=== PATIENT | female | born 1960 | race Caucasian/White ===

== ENCOUNTER 2024-01-15 11:22 | Day surgery (SDC) | payer BC ==
[~2024-01-15] VITALS: Ht 170.2 cm; Wt 93.9 kg
[~2024-01-15 11:22] MED LIST: ATIV2TAB PO; ATOR40TA75 PO; CETI-25 PO; CYAN500T14 PO; EQL50TAB2 PO; ERGO500029 PO; FAMO40TA3 PO; TREL1AER INH; XARE10TA PO
[2024-01-15] MEDS: NS 1,000 ML IV ONE (11:53)
[2024-01-15] MEDS ORDERED: ACET650T61 PO (11:55)
[2024-01-15] MEDS ORDERED: propofoL 200 MG/20 ML VIAL As Ordered ONE (12:49)
[2024-01-15] MEDS ORDERED: LIDOCAINE 2% 100MG/5ML SDV (FOR ANES.) As Ordered ONE (12:49)
[2024-01-15 13:07] VITALS: TEMP 96.7
[2024-01-15 13:28] VITALS: BP 136/65; O2SAT 94
== END 2024-01-15 13:33 | disposition home or self-care (01) ==
LOC: M OPP 11:22
PROVIDERS: ATTEND Surgery
DX: Z12.11 Encounter for screening for malignant neoplasm of colon (principal); Z80.0 Family history of malignant neoplasm of digestive organs; K64.1 Second degree hemorrhoids; Z79.01 Long term (current) use of anticoagulants; Z79.02 Long term (current) use of antithrombotics/antiplatelets; Z79.51 Long term (current) use of inhaled steroids; Z79.899 Other long term (current) drug therapy; Z88.0 Allergy status to penicillin; Z86.711 Personal history of pulmonary embolism; Z87.891 Personal history of nicotine dependence

== ENCOUNTER 2024-02-14 18:57 | Inpatient (IN) | payer MEDICARE, BC ==
[~2024-02-14] VITALS: Ht 170.2 cm; Wt 98.0 kg
[2024-02-14] MEDS: ADVAIR HFA 115/21MCG INHALER INH SCH (00:31)
[~2024-02-14 18:57] MED LIST changes: +ACET650T61 PO
[2024-02-14 19:49] LABS: VENOUS BASE EXCESS -8.8 (-2.0-2.0); VENOUS HCO3 18.6 MMOL/L (23.0-27.0); VENOUS PARTIAL PRESSURE CO2 45.1 mmHg (38.0-50.0); VENOUS PARTIAL PRESSURE O2 33.6 mmHg (30.0-50.0); VENOUS PH 7.233 UNITS (7.330-7.430); VENOUS STANDARD HCO3 16.6 MMOL/L
[2024-02-14 19:50] LABS: HEMOGLOBIN 14.7 g/dl (12.0-15.5); MEAN CORPUSCULAR HEMOGLOBIN 32.7 pg (27.0-33.0); MEAN CORPUSCULAR HGB CONC 33.4 g/dl (32.0-36.5); MEAN CORPUSCULAR VOLUME 97.8 fl (80.0-96.0); PLATELET COUNT, AUTOMATED 226 10^3/uL (150-450); WHITE BLOOD COUNT 8.4 10^3/uL (4.0-10.0)
[2024-02-14 20:11] LABS: ATYPICAL LYMPH 2 % (0-5); LYMPHOCYTES 19 % (16-44); METAMYELOCYTES 5 % (0-0); MONOCYTES 3 % (0-5); MYELOCYTES 1 % (0-0); NEUTROPHILS 51 % (28-66)
[2024-02-14 20:12] LABS: PLATELET CLUMPS SMALL AMT; PLATELET ESTIMATE NORMAL (NORMAL)
[2024-02-14 20:15] LABS: CK-MB VALUE MASS 1.1 NG/ML (<3.6); LIPASE 18 U/L (12-53)
[2024-02-14 20:17] LABS: ALBUMIN 2.9 G/DL (3.2-5.2); ALKALINE PHOSPHATASE 73 U/L (46-116); ALT/SGPT 106 U/L (7.0-40); AST/SGOT 71 U/L (<34); BILIRUBIN,DIRECT 0.8 MG/DL (<0.4); BLOOD UREA NITROGEN 42 MG/DL (9-23); CALCIUM LEVEL 8.5 MG/DL (8.3-10.6); CARBON DIOXIDE LEVEL 20 MMOL/L (20-31); CHLORIDE LEVEL 104 MMOL/L (98-107); CPK CREATINE PHOSPHOKINASE 126 U/L (34-145); CREATININE FOR GFR 3.46 MG/DL (0.55-1.30); GLOMERULAR FILTRATION RATE 14.2 (>45); GLUCOSE, FASTING 91 MG/DL (74-106); MB/CK RELATIVE INDEX 0.87 (< OR =4); POTASSIUM SERUM 3.9 MMOL/L (3.5-5.1); SODIUM LEVEL 140 MMOL/L (136-145)
[2024-02-14 20:19] LABS: ACETONE/KETONE 0.08 MMOL/L (0.02-0.27)
[2024-02-14 20:26] LABS: PROCALCITONIN >50.00 ng/ml
[2024-02-14 20:34] LABS: OSMOLALITY SERUM 303 MOSM/KG (280-301)
[2024-02-14] MEDS: methylPREDNISolone 125MG 2ML VIAL IV ONE (20:34)
[2024-02-14] MEDS: IPRATROPIUM 0.5MG/ALBUTEROL 2.5MG INH SOL UD 3ML (DUONEB) NEB SCH (20:35)
[2024-02-14] MEDS: NS 1,000 ML IV ONE (20:36)
[2024-02-14] MEDS: NS 1,820 ML in IV 1 EA IV ONE (20:36)
[2024-02-14] MEDS: cefTRIAXone SOD 2 GM in DEXTROSE 5% (D5W) ADV/MINI-BAG 50 ML IV ONE (20:36)
[2024-02-14 20:45] LABS: INR 1.59; PARTIAL THROMBOPLASTIN TIME 30.8 SECONDS (24.8-34.2); PROTHROMBIN TIME 18.4 SECONDS (12.5-14.5)
[2024-02-14 20:50] LABS: ABG BASE EXCESS -7.9 (-2.0-2.0); ABG HCO3 15.6 MMOL/L (22.0-26.0); ABG O2 SATURATION 90.6 % (95.0-99.0); ABG PARTIAL PRESSURE CO2 26.8 mmHg (35.0-45.0); ABG PARTIAL PRESSURE O2 58.1 mmHg (75.0-100.0); ABG STANDARD HCO3 17.9 MMOL/L. (22.0-26.0); ABG TOTAL CO2 16.4 MMOL/L (23.0-31.0); ABG pH (ARTERIAL) 7.382 UNITS (7.350-7.450)
[2024-02-14] MEDS: NOREPINEPHRINE 4MG IN D5 250ML 4 MG in IV 1 EA IV SCH (21:33)
[2024-02-14] MEDS: NS 1,000 ML IV SCH (22:02)
[2024-02-14] MEDS ORDERED: LORA1TAB23 PO (22:17)
[2024-02-14] MEDS ORDERED: HOME MED LIST COMPLETE! XX SCH (22:20)
[2024-02-14] MEDS: ACETAMINOPHEN *IV* 1,000 MG in IV 1 EA IV ONE (23:13)
[2024-02-14] MEDS ORDERED: ALBUTEROL 90 MCG/ACT 8GM HFA INHALER INH PRN (23:35)
[2024-02-14] MEDS ORDERED: CEFEPIME HCL 2 GM in DEXTROSE 5% (D5W) ADV/MINI-BAG 50 ML IV SCH (23:35)
[2024-02-15] VITALS (104 sets, daily range): BP systolic 72–132; BP diastolic 39–72; TEMP 97.6–99.6; O2SAT 88–96
[2024-02-15] MEDS: IPRATROPIUM 0.5MG/ALBUTEROL 2.5MG INH SOL UD 3ML (DUONEB) NEB SCH (00:36)
[2024-02-15] MEDS: AZITHROMYCIN 250MG TABLET PO SCH (00:41)
[2024-02-15] MEDS: ATORVASTATIN 20 MG TAB PO SCH (00:41)
[2024-02-15] MEDS: NOREPINEPHRINE 4MG IN D5 250ML 4 MG in IV 1 EA IV SCH (00:48)
[2024-02-15] MEDS: CEFEPIME HCL 1 GM in DEXTROSE 5% (D5W) ADV/MINI-BAG 50 ML IV SCH (01:38)
[2024-02-15 05:26] LABS: HEMATOCRIT 42.1 % (36.0-47.0); HEMOGLOBIN 14.3 g/dl (12.0-15.5); MEAN CORPUSCULAR HEMOGLOBIN 32.7 pg (27.0-33.0); MEAN CORPUSCULAR VOLUME 96.3 fl (80.0-96.0); PLATELET COUNT, AUTOMATED 183 10^3/uL (150-450); RED BLOOD COUNT 4.37 10^6/uL (4.00-5.40)
[2024-02-15 05:56] LABS: CALCIUM LEVEL 7.8 MG/DL (8.3-10.6); CREATININE FOR GFR 2.21 MG/DL (0.55-1.30); GLOMERULAR FILTRATION RATE 23.8 (>45); POTASSIUM SERUM 4.1 MMOL/L (3.5-5.1)
[2024-02-15] MEDS: HEPARIN SOD (PORCINE) 5000UNITS/ML 1ML VIAL/SYRINGE SC SCH (06:00)
[2024-02-15 06:03] LABS: LYMPHOCYTES 16 % (16-44); METAMYELOCYTES 7 % (0-0); MONOCYTES 12 % (0-5); NEUTROPHILS 33 % (28-66)
[2024-02-15 06:05] LABS: PLATELET ESTIMATE NORMAL (NORMAL)
[2024-02-15 07:02] LABS: ALBUMIN 2.6 G/DL (3.2-5.2); BILIRUBIN,DIRECT 0.5 MG/DL (<0.4); BILIRUBIN,TOTAL 1.2 MG/DL (0.3-1.2); TOTAL PROTEIN 5.6 G/DL (5.7-8.2)
[2024-02-15] MEDS: HYDROCORTISONE 100MG/2ML VIAL IV SCH (08:51)
[2024-02-15] MEDS: NS 1,000 ML IV ONE ×3 (08:51→17:07)
[2024-02-15] MEDS: ACETAMINOPHEN TAB 650MG DOSE (2X325MG) PO ONE ×2 (09:21→16:26)
[2024-02-15] MEDS: NS 1,000 ML IV SCH (10:23)
[2024-02-15] MEDS: SODIUM CHLORIDE 0.9% 1000ML IV ONE (10:32)
[2024-02-15 15:55] LABS: CALCIUM LEVEL 6.9 MG/DL (8.3-10.6); CREATININE FOR GFR 1.46 MG/DL (0.55-1.30); GLOMERULAR FILTRATION RATE 38.4 (>45); POTASSIUM SERUM 3.5 MMOL/L (3.5-5.1)
[2024-02-15] MEDS: MORPHINE 2 MG/ML 1ML VIAL IV ONE (17:06)
[2024-02-15] MEDS: LR 1,000 ML IV SCH (18:38)
[2024-02-15] MEDS: FAMOTIDINE 20 MG TAB PO SCH (20:30)
[2024-02-16] VITALS (57 sets, daily range): BP systolic 86–143; BP diastolic 47–69; TEMP 97.2–98; O2SAT 88–96
[2024-02-16 05:36] LABS: MEAN CORPUSCULAR HEMOGLOBIN 32.2 pg (27.0-33.0); MEAN CORPUSCULAR HGB CONC 34.2 g/dl (32.0-36.5); MEAN CORPUSCULAR VOLUME 94.3 fl (80.0-96.0); PLATELET COUNT, AUTOMATED 118 10^3/uL (150-450); RED BLOOD COUNT 3.35 10^6/uL (4.00-5.40); WHITE BLOOD COUNT 11.7 10^3/uL (4.0-10.0)
[2024-02-16] MEDS: LIDOCAINE 5% (LIDODERM) PATCH TD ONE (05:42)
[2024-02-16] MEDS: MORPHINE 2 MG/ML 1ML VIAL IV ONE ×2 (05:43→08:49)
[2024-02-16 05:44] LABS: HEMATOCRIT 31.6 % (36.0-47.0); HEMOGLOBIN 10.8 g/dl (12.0-15.5)
[2024-02-16 06:01] LABS: BILIRUBIN,TOTAL 1.2 MG/DL (0.3-1.2); CALCIUM LEVEL 7.6 MG/DL (8.3-10.6); CREATININE FOR GFR 1.02 MG/DL (0.55-1.30); GLOMERULAR FILTRATION RATE 58.1 (>45); MAGNESIUM LEVEL 1.9 MG/DL (1.8-2.4); POTASSIUM SERUM 3.2 MMOL/L (3.5-5.1); TOTAL PROTEIN 4.8 G/DL (5.7-8.2)
[2024-02-16 06:25] LABS: LYMPHOCYTES 5 % (16-44); METAMYELOCYTES 2 % (0-0); MONOCYTES 3 % (0-5); NEUTROPHILS 67 % (28-66)
[2024-02-16 06:26] LABS: PLATELET ESTIMATE DECREASED (NORMAL)
[2024-02-16] MEDS: POTASSIUM CHLORIDE 10MEQ SR TABLET PO ONE (06:36)
[2024-02-16] MEDS: FUROSEMIDE 20MG/2ML VIAL IV ONE (08:50)
[2024-02-16] MEDS: CEFEPIME HCL 2 GM in DEXTROSE 5% (D5W) ADV/MINI-BAG 50 ML IV SCH (11:16)
[2024-02-16] MEDS: RIVAROXABAN 20MG TAB (XARELTO) PO SCH (12:19)
[2024-02-16] MEDS ORDERED: RIVAROXABAN 20MG TAB (XARELTO) PO SCH (18:00)
[2024-02-16] MEDS: CALCIUM CARBONATE 500 MG CHEW U/D PO PRN (18:11)
[2024-02-16] MEDS: FAMOTIDINE 20 MG TAB PO SCH (20:23)
[2024-02-16] MEDS: LORazepam 0.5 MG TAB PO PRN (20:24)
[2024-02-17] VITALS (16 sets, daily range): BP systolic 90–126; BP diastolic 51–71; TEMP 97.1–98.8; O2SAT 88–95
[2024-02-17] MEDS: ACETAMINOPHEN TAB 650MG DOSE (2X325MG) PO ONE (02:50)
[2024-02-17] MEDS: LIDOCAINE 5% (LIDODERM) PATCH TD ONE (02:50)
[2024-02-17 04:41] LABS: HEMATOCRIT 31.9 % (36.0-47.0); HEMOGLOBIN 10.8 g/dl (12.0-15.5); MEAN CORPUSCULAR HEMOGLOBIN 31.9 pg (27.0-33.0); MEAN CORPUSCULAR HGB CONC 33.9 g/dl (32.0-36.5); MEAN CORPUSCULAR VOLUME 94.1 fl (80.0-96.0); PLATELET COUNT, AUTOMATED 129 10^3/uL (150-450); RED BLOOD COUNT 3.39 10^6/uL (4.00-5.40); WHITE BLOOD COUNT 13.1 10^3/uL (4.0-10.0)
[2024-02-17 05:22] LABS: ATYPICAL LYMPH 1 % (0-5); CK-MB VALUE MASS < 1.0 NG/ML (<3.6); EOSINOPHILS 1 % (0-3); LYMPHOCYTES 11 % (16-44); MONOCYTES 3 % (0-5); NEUTROPHILS 79 % (28-66)
[2024-02-17 05:23] LABS: CPK CREATINE PHOSPHOKINASE 52 U/L (34-145); MB/CK RELATIVE INDEX 1.92 (< OR =4); PLATELET ESTIMATE NORMAL (NORMAL)
[2024-02-17 05:24] LABS: ALBUMIN 1.9 G/DL (3.2-5.2); ALKALINE PHOSPHATASE 82 U/L (46-116); ALT/SGPT 42 U/L (7.0-40); AST/SGOT 26 U/L (<34); BLOOD UREA NITROGEN 29 MG/DL (9-23); CALCIUM LEVEL 8.1 MG/DL (8.3-10.6); CARBON DIOXIDE LEVEL 28 MMOL/L (20-31); CHLORIDE LEVEL 111 MMOL/L (98-107); CREATININE FOR GFR 0.84 MG/DL (0.55-1.30); GLOMERULAR FILTRATION RATE > 60.0 (>45); GLUCOSE, FASTING 96 MG/DL (74-106); SODIUM LEVEL 143 MMOL/L (136-145); TOTAL PROTEIN 4.8 G/DL (5.7-8.2)
[2024-02-17] MEDS: POTASSIUM CHLORIDE 10MEQ SR TABLET PO ONE ×2 (05:56→18:38)
[2024-02-17] MEDS: OMEPRAZOLE 20MG CAP PO SCH (08:32)
[2024-02-17] MEDS ORDERED: OSELTAMIVIR PHOSPHATE 75 MG CAP (TAMIFLU) PO SCH (09:00)
[2024-02-17] MEDS: AZITHROMYCIN INJ 500 MG, VIAL MATE ADAPTER 1 EACH in NS 250 ML IV SCH (09:12)
[2024-02-17] MEDS: ASPIRIN 81MG ENTERIC TABLET PO SCH (09:54)
[2024-02-17] MEDS: TIOTROPIUM INHALER/CAPSULE (SPIRIVA) INH SCH (11:31)
[2024-02-17] MEDS: cefTRIAXone SOD 2 GM in DEXTROSE 5% (D5W) ADV/MINI-BAG 50 ML IV SCH (11:43)
[2024-02-17] MEDS: ACETAMINOPHEN TAB 650MG DOSE (2X325MG) PO PRN (18:38)
[2024-02-17] MEDS: PERMETHRIN 5% CREAM 60 GM XX ONE (20:39)
[2024-02-18] VITALS (15 sets, daily range): BP systolic 88–136; BP diastolic 47–66; TEMP 97–99.2; O2SAT 87–93
[2024-02-18] MEDS ORDERED: PERMETHRIN 5% CREAM 60 GM TOP SCH
[2024-02-18 05:12] LABS: HEMATOCRIT 33.4 % (36.0-47.0); HEMOGLOBIN 11.4 g/dl (12.0-15.5); MEAN CORPUSCULAR HEMOGLOBIN 31.9 pg (27.0-33.0); MEAN CORPUSCULAR HGB CONC 34.1 g/dl (32.0-36.5); MEAN CORPUSCULAR VOLUME 93.6 fl (80.0-96.0); PLATELET COUNT, AUTOMATED 146 10^3/uL (150-450); RED BLOOD COUNT 3.57 10^6/uL (4.00-5.40); WHITE BLOOD COUNT 8.9 10^3/uL (4.0-10.0)
[2024-02-18 05:34] LABS: BLOOD UREA NITROGEN 18 MG/DL (9-23); CALCIUM LEVEL 8.3 MG/DL (8.3-10.6); CARBON DIOXIDE LEVEL 28 MMOL/L (20-31); CHLORIDE LEVEL 106 MMOL/L (98-107); CREATININE FOR GFR 0.73 MG/DL (0.55-1.30); GLOMERULAR FILTRATION RATE > 60.0 (>45); GLUCOSE, FASTING 90 MG/DL (74-106); POTASSIUM SERUM 3.3 MMOL/L (3.5-5.1); SODIUM LEVEL 138 MMOL/L (136-145)
[2024-02-18 06:12] LABS: EOSINOPHILS 2 % (0-3); LYMPHOCYTES 13 % (16-44); MONOCYTES 5 % (0-5); NEUTROPHILS 79 % (28-66); PLATELET ESTIMATE NORMAL (NORMAL)
[2024-02-18] MEDS: POTASSIUM CHLORIDE 10MEQ SR TABLET PO ONE (06:12)
[2024-02-18] MEDS: AZITHROMYCIN 250MG TABLET PO SCH (08:52)
[2024-02-18] MEDS: PANTOPRAZOLE 40MG VIAL IV SCH (08:52)
[2024-02-18 11:18] LABS: ABG BASE EXCESS 4.8 (-2.0-2.0); ABG HCO3 26.9 MMOL/L (22.0-26.0); ABG O2 SATURATION 90.5 % (95.0-99.0); ABG PARTIAL PRESSURE CO2 31.8 mmHg (35.0-45.0); ABG PARTIAL PRESSURE O2 52.7 mmHg (75.0-100.0); ABG STANDARD HCO3 28.6 MMOL/L. (22.0-26.0); ABG TOTAL CO2 27.9 MMOL/L (23.0-31.0); ABG pH (ARTERIAL) 7.545 UNITS (7.350-7.450)
[2024-02-18] MEDS ORDERED: ONDANSETRON 4MG 2ML VIAL IV PRN (11:50)
[2024-02-18] MEDS: SENOKOT S TAB PO SCH (14:40)
[2024-02-18] MEDS: guaiFENesin ER TABLET 600 MG TAB PO SCH (17:21)
[2024-02-19] VITALS (10 sets, daily range): BP systolic 102–133; BP diastolic 51–63; TEMP 97–97.7; O2SAT 88–95
[2024-02-19] MEDS: LIDOCAINE 5% (LIDODERM) PATCH TD ONE ×2 (02:24→22:56)
[2024-02-19] MEDS: KETOROLAC 30 MG/ML 1ML VIAL IV ONE (04:43)
[2024-02-19 05:15] LABS: HEMATOCRIT 35.9 % (36.0-47.0); HEMOGLOBIN 12.1 g/dl (12.0-15.5); MEAN CORPUSCULAR HEMOGLOBIN 31.3 pg (27.0-33.0); MEAN CORPUSCULAR HGB CONC 33.7 g/dl (32.0-36.5); PLATELET COUNT, AUTOMATED 172 10^3/uL (150-450); RED BLOOD COUNT 3.86 10^6/uL (4.00-5.40); WHITE BLOOD COUNT 7.8 10^3/uL (4.0-10.0)
[2024-02-19 05:38] LABS: BLOOD UREA NITROGEN 17 MG/DL (9-23); CALCIUM LEVEL 7.9 MG/DL (8.3-10.6); CARBON DIOXIDE LEVEL 28 MMOL/L (20-31); CHLORIDE LEVEL 103 MMOL/L (98-107); GLOMERULAR FILTRATION RATE > 60.0 (>45); GLUCOSE, FASTING 122 MG/DL (74-106); POTASSIUM SERUM 3.2 MMOL/L (3.5-5.1); SODIUM LEVEL 137 MMOL/L (136-145)
[2024-02-19 06:06] LABS: EOSINOPHILS 1 % (0-3); LYMPHOCYTES 17 % (16-44); METAMYELOCYTES 3 % (0-0); MONOCYTES 7 % (0-5); MYELOCYTES 2 % (0-0); NEUTROPHILS 68 % (28-66)
[2024-02-19 06:08] LABS: PLATELET ESTIMATE NORMAL (NORMAL)
[2024-02-19] MEDS: POTASSIUM CHLORIDE 10MEQ SR TABLET PO ONE ×2 (06:11→17:42)
[2024-02-19] MEDS: methylPREDNISolone 40MG 1ML VIAL IV SCH (11:35)
[2024-02-19] MEDS: MIRALAX *UNIT DOSE* 17GM PACKET PO SCH (11:35)
[2024-02-19] MEDS: PERCOCET 5MG/325MG TAB PO PRN (12:19)
[2024-02-19] MEDS: ALBUTEROL SULFATE 2.5MG/0.5ML INH NEB SOLN NEB SCH (15:21)
[2024-02-19] MEDS: SODIUM CHLORIDE HYPERTONIC 3% 4ML NEB SOL INH SCH (15:21)
[2024-02-19] MEDS: FORMOTEROL FUMARATE 20 MCG/2 ML INHALATION SOLUTION (PERFOROMIST) INH SCH (19:25)
[2024-02-19] MEDS: BUDESONIDE 0.5 MG/2 ML INHALATION SUSPENSION NEB SCH (19:25)
[2024-02-19] MEDS: guaiFENesin ER TABLET 600 MG TAB PO SCH (20:23)
[2024-02-19] MEDS: PERCOCET 5MG/325MG TAB PO ONE (22:57)
[2024-02-19 23:07] LABS: URINE STREP PNEUMONIAE ANTIGEN NOT DETECTED (NOT DETECT)
[2024-02-20 04:25] VITALS: BP 128/63; TEMP 97.7; O2SAT 91
[2024-02-20 04:55] LABS: HEMATOCRIT 37.2 % (36.0-47.0); HEMOGLOBIN 12.3 g/dl (12.0-15.5); MEAN CORPUSCULAR HEMOGLOBIN 31.1 pg (27.0-33.0); MEAN CORPUSCULAR HGB CONC 33.1 g/dl (32.0-36.5); MEAN CORPUSCULAR VOLUME 93.9 fl (80.0-96.0); PLATELET COUNT, AUTOMATED 213 10^3/uL (150-450); RED BLOOD COUNT 3.96 10^6/uL (4.00-5.40); WHITE BLOOD COUNT 9.4 10^3/uL (4.0-10.0)
[2024-02-20 05:39] LABS: ATYPICAL LYMPH 1 % (0-5); LYMPHOCYTES 14 % (16-44); MONOCYTES 7 % (0-5); NEUTROPHILS 73 % (28-66); PLATELET ESTIMATE NORMAL (NORMAL)
[2024-02-20 05:40] LABS: BLOOD UREA NITROGEN 19 MG/DL (9-23); CALCIUM LEVEL 8.5 MG/DL (8.3-10.6); CARBON DIOXIDE LEVEL 27 MMOL/L (20-31); CHLORIDE LEVEL 106 MMOL/L (98-107); GLOMERULAR FILTRATION RATE > 60.0 (>45); GLUCOSE, FASTING 157 MG/DL (74-106); POTASSIUM SERUM 4.7 MMOL/L (3.5-5.1); SODIUM LEVEL 139 MMOL/L (136-145)
[2024-02-20 08:00] VITALS: BP 111/58; TEMP 96.7; O2SAT 90; O2SAT 91
[2024-02-20] MEDS: FUROSEMIDE 40MG/4ML VIAL IV ONE (08:33)
[2024-02-20] MEDS: BISACODYL 10MG SUPP PR ONE (08:33)
[2024-02-20 08:36] LABS: PLEURAL FL COLOR AMBER (COLORLESS); SOURCE, BODY FLUID PLEURAL
[2024-02-20 08:37] LABS: APPEARANCE, BODY FLUID TURBID (CLEAR); SOURCE, BODY FLUID ALBUMIN PLEURAL
[2024-02-20 08:42] LABS: SOURCE, BODY FLUID GLUCOSE PLEURAL; SOURCE, BODY FLUID TRIG PLEURAL; TRIGLYCERIDE, BODY FLUID 52 MG/DL (NOT ESTABLISHED)
[2024-02-20 08:44] LABS: AMYLASE, BODY FLUID 142 U/L (NOT ESTABLISHED); LDH, BODY FLUID 726 U/L (NOT ESTABLISHED); SOURCE, BODY FLUID AMYLASE PLEURAL; SOURCE, BODY FLUID LDH PLEURAL
[2024-02-20 08:45] LABS: CHOLESTEROL, BODY FLUID 62 MG/DL (NOT ESTABLISHED); SOURCE, BODY FLUID CHOL PLEURAL
[2024-02-20 09:19] LABS: SOURCE, BODY FLUID TOT PROTEIN PLEURAL; TOTAL PROTEIN, BODY FLUID 3.9 G/DL (NOT ESTABLISHED)
[2024-02-20] MEDS: PERCOCET 5MG/325MG TAB PO PRN ×2 (11:33→18:45)
[2024-02-20 12:00] VITALS: BP 111/56; TEMP 96.6; TEMP 97.6; O2SAT 90
[2024-02-20 16:00] VITALS: BP 117/63; TEMP 97.6; O2SAT 92
[2024-02-20] MEDS: KETOROLAC 30 MG/ML 1ML VIAL IV ONE (17:25)
[2024-02-20 20:59] VITALS: BP 121/58; TEMP 98.1; O2SAT 91
[2024-02-20] MEDS: SENOKOT S TAB PO SCH (22:02)
[2024-02-21] VITALS (7 sets, daily range): BP systolic 114–131; BP diastolic 54–69; TEMP 97.5–97.9; O2SAT 87–95
[2024-02-21 05:01] LABS: HEMATOCRIT 33.6 % (36.0-47.0); HEMOGLOBIN 11.5 g/dl (12.0-15.5); MEAN CORPUSCULAR HEMOGLOBIN 31.9 pg (27.0-33.0); MEAN CORPUSCULAR HGB CONC 34.2 g/dl (32.0-36.5); MEAN CORPUSCULAR VOLUME 93.1 fl (80.0-96.0); PLATELET COUNT, AUTOMATED 249 10^3/uL (150-450); RED BLOOD COUNT 3.61 10^6/uL (4.00-5.40); WHITE BLOOD COUNT 9.1 10^3/uL (4.0-10.0)
[2024-02-21 05:23] LABS: BLOOD UREA NITROGEN 28 MG/DL (9-23); CALCIUM LEVEL 7.9 MG/DL (8.3-10.6); CARBON DIOXIDE LEVEL 28 MMOL/L (20-31); CHLORIDE LEVEL 103 MMOL/L (98-107); CREATININE FOR GFR 0.81 MG/DL (0.55-1.30); GLOMERULAR FILTRATION RATE > 60.0 (>45); GLUCOSE, FASTING 172 MG/DL (74-106); POTASSIUM SERUM 4.7 MMOL/L (3.5-5.1); SODIUM LEVEL 137 MMOL/L (136-145)
[2024-02-21 05:35] LABS: ATYPICAL LYMPH 3 % (0-5); LYMPHOCYTES 13 % (16-44); MONOCYTES 7 % (0-5); NEUTROPHILS 77 % (28-66); PLATELET CLUMPS SMALL AMT; PLATELET ESTIMATE NORMAL (NORMAL); POIKILOCYTOSIS 1+
[2024-02-21] MEDS: ENOXAPARIN 100MG/1ML SYRINGE (J1650 PER 10MG) SC SCH (10:16)
[2024-02-21] MEDS: MOM 30ML SUSPENSION UDC PO ONE (10:17)
[2024-02-21] MEDS: methylPREDNISolone 40MG 1ML VIAL IV SCH (10:17)
[2024-02-21 15:11] LABS: BASO % 0.2 % (0.0-1.0); HEMATOCRIT 37.7 % (36.0-47.0); HEMOGLOBIN 12.5 g/dl (12.0-15.5); LYMPH # 1.1 10^3/uL (1.5-5.0); MEAN CORPUSCULAR HEMOGLOBIN 31.6 pg (27.0-33.0); MEAN CORPUSCULAR HGB CONC 33.2 g/dl (32.0-36.5); MEAN CORPUSCULAR VOLUME 95.2 fl (80.0-96.0); MONO # 0.3 10^3/uL (0.0-0.8); MONO % 3.5 % (2.0-8.0); NEUTROPHILS # 7.9 10^3/uL (1.5-8.5); NEUTROPHILS % 80.5 % (36.0-66.0); PLATELET COUNT, AUTOMATED 278 10^3/uL (150-450); RED BLOOD COUNT 3.96 10^6/uL (4.00-5.40); WHITE BLOOD COUNT 9.8 10^3/uL (4.0-10.0)
[2024-02-21 15:35] LABS: BLOOD UREA NITROGEN 26 MG/DL (9-23); CALCIUM LEVEL 8.2 MG/DL (8.3-10.6); CARBON DIOXIDE LEVEL 27 MMOL/L (20-31); CHLORIDE LEVEL 104 MMOL/L (98-107); CREATININE FOR GFR 0.79 MG/DL (0.55-1.30); GLOMERULAR FILTRATION RATE > 60.0 (>45); GLUCOSE, FASTING 150 MG/DL (74-106); MAGNESIUM LEVEL 2.2 MG/DL (1.8-2.4); POTASSIUM SERUM 4.7 MMOL/L (3.5-5.1); SODIUM LEVEL 139 MMOL/L (136-145)
[2024-02-22 04:00] VITALS: BP 125/68; TEMP 98.2; O2SAT 93
[2024-02-22] MEDS ORDERED: SENOKOT S TAB PO PRN (08:55)
[2024-02-22] MEDS ORDERED: guaiFENesin ER TABLET 600 MG TAB PO PRN (09:00)
[2024-02-22] MEDS ORDERED: MIRALAX *UNIT DOSE* 17GM PACKET PO PRN (09:00)
[2024-02-22 11:35] LABS: BASO % 0.2 % (0.0-1.0); EOS % 0.3 % (0.0-3.0); HEMATOCRIT 37.9 % (36.0-47.0); HEMOGLOBIN 12.4 g/dl (12.0-15.5); LYMPH # 1.1 10^3/uL (1.5-5.0); LYMPH % 8.9 % (24.0-44.0); MEAN CORPUSCULAR HEMOGLOBIN 31.6 pg (27.0-33.0); MEAN CORPUSCULAR HGB CONC 32.7 g/dl (32.0-36.5); MEAN CORPUSCULAR VOLUME 96.7 fl (80.0-96.0); MONO # 0.5 10^3/uL (0.0-0.8); MONO % 3.7 % (2.0-8.0); NEUTROPHILS # 10.1 10^3/uL (1.5-8.5); NEUTROPHILS % 82.9 % (36.0-66.0); PLATELET COUNT, AUTOMATED 274 10^3/uL (150-450); RED BLOOD COUNT 3.92 10^6/uL (4.00-5.40); WHITE BLOOD COUNT 12.2 10^3/uL (4.0-10.0)
[2024-02-22 11:56] LABS: BLOOD UREA NITROGEN 22 MG/DL (9-23); CALCIUM LEVEL 7.9 MG/DL (8.3-10.6); CARBON DIOXIDE LEVEL 30 MMOL/L (20-31); CHLORIDE LEVEL 103 MMOL/L (98-107); GLOMERULAR FILTRATION RATE > 60.0 (>45); GLUCOSE, FASTING 83 MG/DL (74-106); POTASSIUM SERUM 4.4 MMOL/L (3.5-5.1); SODIUM LEVEL 138 MMOL/L (136-145)
[2024-02-22 12:00] VITALS: BP 117/59; TEMP 97.7; O2SAT 91
[2024-02-22] MEDS: LORazepam 0.5 MG TAB PO PRN (16:23)
[2024-02-22 20:10] VITALS: BP 98/48; TEMP 97.7; O2SAT 91
[2024-02-23 04:11] VITALS: BP 104/57; TEMP 97.7; O2SAT 95
[2024-02-23 06:33] LABS: BASO % 0.2 % (0.0-1.0); EOS # 0.1 10^3/uL (0.0-0.5); EOS % 0.5 % (0.0-3.0); HEMATOCRIT 34.5 % (36.0-47.0); HEMOGLOBIN 11.2 g/dl (12.0-15.5); LYMPH # 2.2 10^3/uL (1.5-5.0); LYMPH % 22.7 % (24.0-44.0); MEAN CORPUSCULAR HEMOGLOBIN 31.5 pg (27.0-33.0); MEAN CORPUSCULAR HGB CONC 32.5 g/dl (32.0-36.5); MEAN CORPUSCULAR VOLUME 96.9 fl (80.0-96.0); MONO # 0.5 10^3/uL (0.0-0.8); NEUTROPHILS # 6.3 10^3/uL (1.5-8.5); PLATELET COUNT, AUTOMATED 292 10^3/uL (150-450); RED BLOOD COUNT 3.56 10^6/uL (4.00-5.40); WHITE BLOOD COUNT 9.5 10^3/uL (4.0-10.0)
[2024-02-23 06:56] LABS: BLOOD UREA NITROGEN 17 MG/DL (9-23); CALCIUM LEVEL 8.5 MG/DL (8.3-10.6); CARBON DIOXIDE LEVEL 32 MMOL/L (20-31); CHLORIDE LEVEL 105 MMOL/L (98-107); CREATININE FOR GFR 0.78 MG/DL (0.55-1.30); GLOMERULAR FILTRATION RATE > 60.0 (>45); GLUCOSE, FASTING 96 MG/DL (74-106); POTASSIUM SERUM 4.2 MMOL/L (3.5-5.1); SODIUM LEVEL 139 MMOL/L (136-145)
[2024-02-23 07:26] VITALS: O2SAT 92
[2024-02-23] MEDS: predniSONE 20 MG TAB PO SCH (08:24)
[2024-02-23 12:00] VITALS: BP 111/55; TEMP 97.3; O2SAT 91
[2024-02-23] MEDS: RIVAROXABAN 20MG TAB (XARELTO) PO SCH (12:25)
[2024-02-23] MEDS ORDERED: CEFD1CAP9 PO (13:00)
[2024-02-23] MEDS ORDERED: ALBU8.5H INH (13:14)
[2024-02-23] MEDS ORDERED: PRED10TA2 PO (13:14)
[2024-02-23] MEDS ORDERED: PRED20TA PO (13:14)
[2024-02-23 21:00] VITALS: BP 116/65; TEMP 97; O2SAT 90
[2024-02-24 04:17] VITALS: BP 135/71; TEMP 97.5; O2SAT 92
[2024-02-24] MEDS: PERMETHRIN 5% CREAM 60 GM XX ONE (11:51)
[2024-02-24 12:06] VITALS: BP 107/66; TEMP 97.2; O2SAT 89
== END 2024-02-24 13:37 | disposition home health service (06) | DRG 871 ==
LOC: EDBD 18:57 → M ED 18:57 → M ED INP 23:33 → M ICU 02-15 00:19 → M MS5PR 02-21 13:00
PROVIDERS: ADMIT Student in an Organized Health Care Education/Training Program; ATTEND General Practice
PROC: B246ZZZ Ultrasonography of Right and Left Heart (ICD-10-PCS; principal; 2024-02-16)
PROC: 0W9930Z Drainage of Right Pleural Cavity with Drainage Device, Percutaneous Approach (ICD-10-PCS; 2024-02-19)
DX: A41.3 Sepsis due to Hemophilus influenzae (principal); J96.01 Acute respiratory failure with hypoxia; I21.A1 Myocardial infarction type 2; R65.21 Severe sepsis with septic shock; J18.9 Pneumonia, unspecified organism; N17.9 Acute kidney failure, unspecified; J91.8 Pleural effusion in other conditions classified elsewhere; J98.11 Atelectasis; E87.20 Acidosis, unspecified; I50.32 Chronic diastolic (congestive) heart failure; E87.0 Hyperosmolality and hypernatremia; J44.1 Chronic obstructive pulmonary disease with (acute) exacerbation; J44.0 Chronic obstructive pulmonary disease with (acute) lower respiratory infection; R19.7 Diarrhea, unspecified; R74.01 Elevation of levels of liver transaminase levels; Z99.81 Dependence on supplemental oxygen; R11.2 Nausea with vomiting, unspecified; E87.6 Hypokalemia; K21.9 Gastro-esophageal reflux disease without esophagitis; E78.5 Hyperlipidemia, unspecified; F41.9 Anxiety disorder, unspecified; Z86.711 Personal history of pulmonary embolism; Z86.718 Personal history of other venous thrombosis and embolism; Z79.01 Long term (current) use of anticoagulants; Z79.899 Other long term (current) drug therapy; Z88.0 Allergy status to penicillin

== ENCOUNTER → 2024-02-29 | Outpatient (CLI) | payer BC ==
[~2024-02-29] MED LIST changes: +ALBU8.5H INH; +CEFD1CAP9 PO; +LORA1TAB23 PO; +PRED10TA2 PO; +PRED20TA PO
[2024-02-29 15:02] LABS: BASO % 0.2 % (0.0-1.0); EOS % 0.2 % (0.0-3.0); HEMATOCRIT 44.9 % (36.0-47.0); HEMOGLOBIN 14.6 g/dl (12.0-15.5); LYMPH # 1.8 10^3/uL (1.5-5.0); LYMPH % 12.5 % (24.0-44.0); MEAN CORPUSCULAR HEMOGLOBIN 31.8 pg (27.0-33.0); MEAN CORPUSCULAR HGB CONC 32.5 g/dl (32.0-36.5); MEAN CORPUSCULAR VOLUME 97.8 fl (80.0-96.0); MONO # 0.5 10^3/uL (0.0-0.8); MONO % 3.3 % (2.0-8.0); NEUTROPHILS # 12.2 10^3/uL (1.5-8.5); NEUTROPHILS % 82.8 % (36.0-66.0); PLATELET COUNT, AUTOMATED 550 10^3/uL (150-450); RED BLOOD COUNT 4.59 10^6/uL (4.00-5.40); WHITE BLOOD COUNT 14.7 10^3/uL (4.0-10.0)
[2024-02-29 15:06] LABS: C REACTIVE PROTEIN QUANTITATIV < 0.40 MG/DL (<1.0)
[2024-02-29 15:08] LABS: ALBUMIN 3.2 G/DL (3.2-5.2); ALKALINE PHOSPHATASE 125 U/L (46-116); ALT/SGPT 62 U/L (7.0-40); AST/SGOT 14 U/L (<34); BILIRUBIN,TOTAL 0.8 MG/DL (0.3-1.2); BLOOD UREA NITROGEN 21 MG/DL (9-23); CALCIUM LEVEL 9.1 MG/DL (8.3-10.6); CARBON DIOXIDE LEVEL 30 MMOL/L (20-31); CHLORIDE LEVEL 105 MMOL/L (98-107); GLOMERULAR FILTRATION RATE 53.1 (>45); GLUCOSE, FASTING 114 MG/DL (74-106); POTASSIUM SERUM 4.5 MMOL/L (3.5-5.1); SODIUM LEVEL 141 MMOL/L (136-145)
[2024-02-29 15:09] LABS: IMMUNOGLOBULIN G 1021 MG/DL (650-1600)
== END ==
LOC: M PLALAB 12:31
PROVIDERS: ATTEND Internal Medicine Infectious Disease
DX: J14 Pneumonia due to Hemophilus influenzae (principal)

== ENCOUNTER → 2024-04-01 | Outpatient (CLI) | payer BC | LOC: M RAD 18:08 | PROVIDERS: ATTEND Physician Assistant Medical | DX: J18.9 Pneumonia, unspecified organism (principal); R06.02 Shortness of breath ==

== ENCOUNTER 2024-05-25 10:10 | Emergency (ER) | payer BC, MEDICARE ==
[~2024-05-25] VITALS: Ht 170.2 cm; Wt 96.3 kg
[2024-05-25 14:08] VITALS: BP 117/57; TEMP 101; O2SAT 92
[2024-05-25] MEDS ORDERED: BENZ200C70 PO (14:37)
[2024-05-25] MEDS ORDERED: ZITHTAB PO (14:37)
[2024-05-25] MEDS ORDERED: ONDA-282 PO (14:37)
== END 2024-05-25 14:53 | disposition home or self-care (01) ==
LOC: M ED 10:10
DX: J44.9 Chronic obstructive pulmonary disease, unspecified (principal); J06.9 Acute upper respiratory infection, unspecified; B34.1 Enterovirus infection, unspecified; Z88.0 Allergy status to penicillin; Z79.01 Long term (current) use of anticoagulants; Z79.1 Long term (current) use of non-steroidal anti-inflammatories (NSAID); Z79.51 Long term (current) use of inhaled steroids; Z79.899 Other long term (current) drug therapy

== ENCOUNTER → 2024-05-27 | Outpatient (CLI) | payer MEDICARE, BC ==
[~2024-05-27] MED LIST changes: +BENZ200C70 PO; +ONDA-282 PO; +ZITHTAB PO
[2024-05-27 13:25] LABS: EOS % 0.1 % (0.0-3.0); HEMATOCRIT 42.3 % (36.0-47.0); HEMOGLOBIN 13.9 g/dl (12.0-15.5); LYMPH % 10.7 % (24.0-44.0); MEAN CORPUSCULAR HEMOGLOBIN 32.3 pg (27.0-33.0); MEAN CORPUSCULAR HGB CONC 32.9 g/dl (32.0-36.5); MEAN CORPUSCULAR VOLUME 98.1 fl (80.0-96.0); MONO # 0.4 10^3/uL (0.0-0.8); MONO % 4.4 % (2.0-8.0); NEUTROPHILS # 7.5 10^3/uL (1.5-8.5); NEUTROPHILS % 84.5 % (36.0-66.0); PLATELET COUNT, AUTOMATED 171 10^3/uL (150-450); RED BLOOD COUNT 4.31 10^6/uL (4.00-5.40); WHITE BLOOD COUNT 8.9 10^3/uL (4.0-10.0)
[2024-05-27 13:28] LABS: ALBUMIN 3.5 G/DL (3.2-5.2); BILIRUBIN,TOTAL 0.6 MG/DL (0.3-1.2); CREATININE FOR GFR 1.23 MG/DL (0.55-1.30); GLOMERULAR FILTRATION RATE 46.6 (>45); POTASSIUM SERUM 4.5 MMOL/L (3.5-5.1); TOTAL PROTEIN 7.3 G/DL (5.7-8.2)
== END ==
LOC: M PLALAB 10:10
PROVIDERS: ATTEND Registered Nurse
DX: B34.9 Viral infection, unspecified (principal)

== ENCOUNTER → 2024-06-21 | Outpatient (CLI) | payer MEDICARE, BC | LOC: M PLAIMG 08:07 | PROVIDERS: ATTEND Internal Medicine Critical Care Medicine | DX: J18.9 Pneumonia, unspecified organism (principal) ==

== ENCOUNTER → 2024-07-19 | Outpatient (CLI) | payer BC, MEDICARE ==
[2024-07-19 10:37] LABS: EOS # 0.4 10^3/uL (0.0-0.5); HEMATOCRIT 42.9 % (36.0-47.0); HEMOGLOBIN 14.1 g/dl (12.0-15.5); LYMPH # 1.8 10^3/uL (1.5-5.0); LYMPH % 35.2 % (24.0-44.0); MEAN CORPUSCULAR HEMOGLOBIN 30.7 pg (27.0-33.0); MEAN CORPUSCULAR HGB CONC 32.9 g/dl (32.0-36.5); MEAN CORPUSCULAR VOLUME 93.5 fl (80.0-96.0); MONO # 0.4 10^3/uL (0.0-0.8); NEUTROPHILS # 2.6 10^3/uL (1.5-8.5); NEUTROPHILS % 49.6 % (36.0-66.0); PLATELET COUNT, AUTOMATED 193 10^3/uL (150-450); RED BLOOD COUNT 4.59 10^6/uL (4.00-5.40); WHITE BLOOD COUNT 5.1 10^3/uL (4.0-10.0)
[2024-07-19 11:02] LABS: ALBUMIN 3.6 G/DL (3.2-5.2); CALCIUM LEVEL 9.3 MG/DL (8.3-10.6); CHOLESTEROL RISK RATIO 3.08 (<5); CREATININE FOR GFR 1.08 MG/DL (0.55-1.30); GLOMERULAR FILTRATION RATE 54.2 (>45); HDL CHOLESTEROL 46.1 MG/DL (>40); LDL CHOLESTEROL 71.9 MG/DL (<100); NON-HDL-C 95.9 MG/DL; POTASSIUM SERUM 4.9 MMOL/L (3.5-5.1); TOTAL PROTEIN 7.3 G/DL (5.7-8.2)
[2024-07-20 19:38] LABS: LDL DIRECT 65 mg/dL (<100)
== END ==
LOC: M LAB 09:22
PROVIDERS: ATTEND Internal Medicine Cardiovascular Disease
DX: I50.22 Chronic systolic (congestive) heart failure (principal)

== ENCOUNTER → 2024-09-28 | Outpatient (CLI) | payer MEDICARE, BC ==
[2024-09-28 10:29] LABS: EOS # 0.3 10^3/uL (0.0-0.5); EOS % 5.5 % (0.0-3.0); HEMATOCRIT 41.9 % (36.0-47.0); HEMOGLOBIN 13.6 g/dl (12.0-15.5); LYMPH # 1.5 10^3/uL (1.5-5.0); LYMPH % 27.8 % (24.0-44.0); MEAN CORPUSCULAR HGB CONC 32.5 g/dl (32.0-36.5); MEAN CORPUSCULAR VOLUME 95.4 fl (80.0-96.0); MONO # 0.4 10^3/uL (0.0-0.8); NEUTROPHILS # 3.1 10^3/uL (1.5-8.5); NEUTROPHILS % 59.3 % (36.0-66.0); PLATELET COUNT, AUTOMATED 187 10^3/uL (150-450); RED BLOOD COUNT 4.39 10^6/uL (4.00-5.40); WHITE BLOOD COUNT 5.3 10^3/uL (4.0-10.0)
[2024-09-28 11:02] LABS: CALCIUM LEVEL 9.2 MG/DL (8.3-10.6); CREATININE FOR GFR 1.21 MG/DL (0.55-1.30); GLOMERULAR FILTRATION RATE 49.7 (>45); POTASSIUM SERUM 4.5 MMOL/L (3.5-5.1)
== END ==
LOC: M LAB 10:05
PROVIDERS: ATTEND Internal Medicine Cardiovascular Disease
DX: I50.22 Chronic systolic (congestive) heart failure (principal)

== ENCOUNTER → 2024-10-13 | Outpatient (CLI) | payer MEDICARE, BC ==
[2024-10-13 13:22] LABS: CREATININE FOR GFR 1.15 MG/DL (0.55-1.30); GLOMERULAR FILTRATION RATE 52.9 (>45)
== END ==
LOC: M LAB 12:30
PROVIDERS: ATTEND Internal Medicine Cardiovascular Disease
DX: I50.22 Chronic systolic (congestive) heart failure (principal)

== ENCOUNTER → 2025-01-18 | Outpatient (REF) | payer MEDICARE, BC ==
[~2025-01-18] MED LIST changes: -EQL50TAB2 PO; +VITA1TAB82 PO
== END ==
LOC: M SFHCDERM 13:11
PROVIDERS: ATTEND Physician Assistant
DX: L82.1 Other seborrheic keratosis (principal)

== ENCOUNTER → 2025-01-29 | Outpatient (CLI) | payer MEDICARE, BC | LOC: M SLEEP 20:00 | PROVIDERS: ATTEND Internal Medicine Critical Care Medicine | DX: R06.83 Snoring (principal) ==

== ENCOUNTER → 2025-03-24 | Outpatient (REF) | payer MEDICARE, BC | LOC: M LAB REF 16:41 | PROVIDERS: ATTEND Internal Medicine Critical Care Medicine | DX: J44.9 Chronic obstructive pulmonary disease, unspecified (principal) ==

== ENCOUNTER 2025-04-10 11:23 | Emergency (ER) | payer MEDICARE, BC ==
[~2025-04-10] VITALS: Ht 170.2 cm; Wt 94.6 kg
[2025-04-10 11:33] VITALS: TEMP 99.2
[2025-04-10 12:00] LABS: VENOUS BASE EXCESS -0.3 (-2.0-2.0); VENOUS HCO3 24.4 MMOL/L (23.0-27.0); VENOUS O2 SATURATION 78.8 % (60.0-80.0); VENOUS PARTIAL PRESSURE CO2 40.4 mmHg (38.0-50.0); VENOUS PARTIAL PRESSURE O2 42.4 mmHg (30.0-50.0); VENOUS PH 7.399 UNITS (7.330-7.430); VENOUS STANDARD HCO3 23.7 MMOL/L; VENOUS TOTAL CO2 25.6 MMOL/L (24.0-28.0)
[2025-04-10 12:04] LABS: BASO # 0.0 10^3/uL (0.0-0.2); BASO % 0.2 % (0.0-1.0); EOS # 0.3 10^3/uL (0.0-0.5); EOS % 7.1 % (0.0-3.0); LYMPH # 1.5 10^3/uL (1.5-5.0); LYMPH % 33.3 % (24.0-44.0); MONO # 0.3 10^3/uL (0.0-0.8); MONO % 7.3 % (2.0-8.0); NEUTROPHILS # 2.4 10^3/uL (1.5-8.5); NEUTROPHILS % 51.9 % (36.0-66.0); PLATELET COUNT, AUTOMATED 199 10^3/uL (150-450)
[2025-04-10 12:33] LABS: ALT/SGPT 66.0 U/L (7.0-40); AST/SGOT 38.0 U/L (<34); CALCIUM LEVEL 9.3 MG/DL (8.3-10.6); CARBON DIOXIDE LEVEL 24.0 MMOL/L (20-31); CHLORIDE LEVEL 105.0 MMOL/L (98-107); CREATININE FOR GFR 1.08 MG/DL (0.55-1.30); GLOMERULAR FILTRATION RATE 56.7 (>45); POTASSIUM SERUM 4.2 MMOL/L (3.5-5.1); SODIUM LEVEL 140.0 MMOL/L (136-145)
[2025-04-10] MEDS ORDERED: ISOVUE-370 76% 100 ML VIAL As Ordered ONE (13:07)
[2025-04-10] MEDS ORDERED: MAGN500T8 PO (14:26)
[2025-04-10] MEDS ORDERED: FARX1TAB3 PO (14:26)
[2025-04-10] MEDS ORDERED: VITATAB73 PO (14:26)
[2025-04-10] MEDS ORDERED: PRIL20TA2 PO (14:26)
[2025-04-10] MEDS ORDERED: HOME MED LIST COMPLETE! XX SCH (14:30)
[2025-04-10 15:06] VITALS: O2SAT 91
[2025-04-10] MEDS ORDERED: PRED10TA2 PO (15:10)
[2025-04-10 15:15] VITALS: BP 119/69; O2SAT 92
== END 2025-04-10 15:34 | disposition home or self-care (01) ==
LOC: M ED 11:23
DX: J44.9 Chronic obstructive pulmonary disease, unspecified (principal); R91.1 Solitary pulmonary nodule; K21.9 Gastro-esophageal reflux disease without esophagitis; E78.5 Hyperlipidemia, unspecified; F41.9 Anxiety disorder, unspecified; Z88.0 Allergy status to penicillin; Z79.1 Long term (current) use of non-steroidal anti-inflammatories (NSAID); Z79.51 Long term (current) use of inhaled steroids; Z79.899 Other long term (current) drug therapy; Z79.01 Long term (current) use of anticoagulants; Z79.52 Long term (current) use of systemic steroids
CPT/HCPCS: 36415; 71045; 71275; 80048; 80076; 82803; 85025; 93005; 93041; 94760; 99285; Q9967

== ENCOUNTER 2025-04-18 12:22 | Emergency (ER) | payer MEDICARE, BC ==
[~2025-04-18] VITALS: Ht 162.6 cm; Wt 95.8 kg
[~2025-04-18 12:22] MED LIST changes: +FARX1TAB3 PO; +MAGN500T8 PO; +PRIL20TA2 PO; +VITATAB73 PO
[2025-04-18 12:55] LABS: BASO # 0.0 10^3/uL (0.0-0.2); BASO % 0.3 % (0.0-1.0); EOS # 0.2 10^3/uL (0.0-0.5); EOS % 1.7 % (0.0-3.0); LYMPH # 3.0 10^3/uL (1.5-5.0); LYMPH % 26.0 % (24.0-44.0); MONO # 0.6 10^3/uL (0.0-0.8); MONO % 5.4 % (2.0-8.0); NEUTROPHILS # 7.7 10^3/uL (1.5-8.5); NEUTROPHILS % 66.0 % (36.0-66.0); PLATELET COUNT, AUTOMATED 245 10^3/uL (150-450)
[2025-04-18 13:19] LABS: D-DIMER QUANT 0.33 ug/mL (<0.5)
[2025-04-18 13:20] LABS: CK-MB VALUE MASS 1.1 NG/ML (<3.6)
[2025-04-18 13:23] LABS: ALT/SGPT 29 U/L (7.0-40); AST/SGOT 21 U/L (<34); CALCIUM LEVEL 9.1 MG/DL (8.3-10.6); CARBON DIOXIDE LEVEL 26 MMOL/L (20-31); CHLORIDE LEVEL 105 MMOL/L (98-107); CREATININE FOR GFR 1.12 MG/DL (0.55-1.30); GLOMERULAR FILTRATION RATE 54.2 (>45); POTASSIUM SERUM 3.9 MMOL/L (3.5-5.1); SODIUM LEVEL 144 MMOL/L (136-145)
[2025-04-18 13:24] LABS: FREE T4 1.10 NG/DL (0.89-1.76)
[2025-04-18 13:26] LABS: CPK CREATINE PHOSPHOKINASE 32 U/L (34-145); MB/CK RELATIVE INDEX 3.43 (< OR =4)
[2025-04-18] MEDS ORDERED: GI COCKTAIL 50 ML BTL(HYOSCYAMINE/MAALOX/LIDOCAINE VISCOUS)(1:3:1) PO ONE (13:40)
[2025-04-18 14:25] LABS: CK-MB VALUE MASS 1.0 NG/ML (<3.6); CPK CREATINE PHOSPHOKINASE 44 U/L (34-145); MB/CK RELATIVE INDEX 2.27 (< OR =4)
[2025-04-18] MEDS ORDERED: SUCR1SS PO (15:22)
[2025-04-18 16:02] VITALS: BP 145/65; TEMP 97.5; O2SAT 94
== END 2025-04-18 16:02 | disposition home or self-care (01) ==
LOC: M ED 12:22
DX: K29.60 Other gastritis without bleeding (principal); R94.31 Abnormal electrocardiogram [ECG] [EKG]; E78.5 Hyperlipidemia, unspecified; K21.9 Gastro-esophageal reflux disease without esophagitis; J44.9 Chronic obstructive pulmonary disease, unspecified; Z88.0 Allergy status to penicillin; Z79.1 Long term (current) use of non-steroidal anti-inflammatories (NSAID); Z79.51 Long term (current) use of inhaled steroids; Z79.01 Long term (current) use of anticoagulants; Z79.52 Long term (current) use of systemic steroids; Z79.899 Other long term (current) drug therapy

== ENCOUNTER → 2025-05-10 | Outpatient (CLI) | payer MEDICARE, BC ==
[~2025-05-10] MED LIST changes: +SUCR1SS PO
[2025-05-10 14:48] LABS: BASO # 0.0 10^3/uL (0.0-0.2); BASO % 0.0 % (0.0-1.0); EOS # 0.3 10^3/uL (0.0-0.5); EOS % 7.0 % (0.0-3.0); LYMPH # 1.9 10^3/uL (1.5-5.0); LYMPH % 42.9 % (24.0-44.0); MONO # 0.4 10^3/uL (0.0-0.8); MONO % 10.0 % (2.0-8.0); NEUTROPHILS # 1.8 10^3/uL (1.5-8.5); NEUTROPHILS % 39.9 % (36.0-66.0); PLATELET COUNT, AUTOMATED 249 10^3/uL (150-450)
[2025-05-10 15:07] LABS: ESTIMATED AVERAGE GLUCOSE 114.0 MG/DL (60-110)
[2025-05-10 15:16] LABS: ALT/SGPT 33.0 U/L (7.0-40); AST/SGOT 28.0 U/L (<34); CALCIUM LEVEL 9.2 MG/DL (8.3-10.6); CARBON DIOXIDE LEVEL 29.0 MMOL/L (20-31); CHLORIDE LEVEL 104.0 MMOL/L (98-107); CHOLESTEROL LEVEL 141.0 MG/DL (<200); CHOLESTEROL RISK RATIO 2.96 (<5); CREATININE FOR GFR 1.2 MG/DL (0.55-1.30); GLOMERULAR FILTRATION RATE 49.9 (>45); LDL CHOLESTEROL 62.8 MG/DL (<100); NON-HDL-C 93.4 MG/DL; POTASSIUM SERUM 4.6 MMOL/L (3.5-5.1); SODIUM LEVEL 144.0 MMOL/L (136-145); TRIGLYCERIDES LEVEL 153.0 MG/DL (<150)
== END ==
LOC: M WUC 10:51
PROVIDERS: ATTEND Registered Nurse
DX: R94.5 Abnormal results of liver function studies (principal); E78.2 Mixed hyperlipidemia; Z79.899 Other long term (current) drug therapy

== ENCOUNTER → 2025-05-18 | Outpatient (CLI) | payer MEDICARE, BC | LOC: M WHC 10:55 | PROVIDERS: ATTEND Registered Nurse | DX: Z12.31 Encounter for screening mammogram for malignant neoplasm of breast (principal); R92.313 Mammographic fatty tissue density, bilateral breasts ==

== ENCOUNTER → 2025-05-25 | Outpatient (CLI) | payer MEDICARE, BC ==
[2025-05-25 12:25] LABS: BASO # 0.0 10^3/uL (0.0-0.2); BASO % 0.1 % (0.0-1.0); EOS # 0.3 10^3/uL (0.0-0.5); EOS % 4.6 % (0.0-3.0); LYMPH # 2.3 10^3/uL (1.5-5.0); LYMPH % 32.5 % (24.0-44.0); MONO # 0.6 10^3/uL (0.0-0.8); MONO % 9.2 % (2.0-8.0); NEUTROPHILS # 3.7 10^3/uL (1.5-8.5); NEUTROPHILS % 53.3 % (36.0-66.0); PLATELET COUNT, AUTOMATED 232 10^3/uL (150-450)
== END ==
LOC: M WUC 08:57
PROVIDERS: ATTEND Registered Nurse
DX: R59.0 Localized enlarged lymph nodes (principal)